=== PATIENT | female | born 1985 | race African-American/Black ===

== ENCOUNTER 2018-03-12 09:24 | Emergency (ER) | payer MEDICAID ==
--- NOTE | 2018-03-12 10:51 | ED ---
Perry Khan Stephanie, scribed for Raivn Harvey MD on 03/12/18 at 0945 . Psychiatric Complaint - HPI Summary HPI Summary: The pt is a 32 y/o F BIB police with c/o aggressive behavior that began at 09: 00 today. Symptoms include sleep disturbances. The pt presents from a nursing home secondary to disruptive behavior. The pt reports she was bothered by the noise at er current facility. She expresses her dissatisfaction with her residential placement. Her psychiatrist is Dr. Nancy Martin. [facility]. She denies any physical complaint. - History Of Current Complaint Time Seen by Provider: 03/12/18 09:38 Hx Obtained From: Patient, EMS Hx Last Menstrual Period: 05/14/15 ?: No Onset/Duration: Gradual Onset - chronic, Still Present Timing: Constant Character: Frustrated Aggravating Factor(s): Other - loud noises in nursing home Alleviating Factor(s): Nothing Associated Signs And Symptoms: Positive: Sleep Disturbance Related History: Positive For: Prior Psychiatric Issues Has Homicidal: Denies: Thoughts - Allergies/Home Medications Allergies/Adverse Reactions: Allergies Allergy/AdvReac Type Severity Reaction Status Date / Time No Known Allergies Allergy Verified 05/21/15 15:09 Home Medications: Home Medications Acetaminophen TAB* [Tylenol TAB*] 650 mg PO Q4H PRN 03/12/18 [History Confirmed 03/12/18] Amitriptyline TAB* [Elavil TAB*] 100 mg PO BEDTIME 03/12/18 [History Confirmed 03/12/18] Ammonium Lactate [Ammonium Lactate] 12 % TOPICAL DAILY 03/12/18 [History Confirmed 03/12/18] Bacitracin OINTMENT* 1 applic TOPICAL BID 03/12/18 [History Confirmed 03/12/18] Benztropine TAB* [Cogentin TAB*] 1 mg PO TID 03/12/18 [History Confirmed ] Bisacodyl SUPP* [Dulcolax Supp*] 10 mg PO DAILY PRN 03/12/18 [History Confirmed 03/12/18] Calcium Polycarbophil TAB* [Fibercon TAB*] 625 mg PO DAILY 03/12/18 [History Confirmed 03/12/18] Cetirizine* [ZyrTEC 10 MG TAB*] 10 mg PO BEDTIME 03/12/18 [History Confirmed ] Chlorhexidine MOUTHWASH 0.12%* [Peridex Mouth Wash 0.12%*] 10 ml SWISH SPIT DAILY 03/12/18 [History Confirmed 03/12/18] Desogestrel-Ethinyl Estradiol [Enskyce] 1 tab PO DAILY 03/12/18 [History Confirmed 03/12/18] Docusate CAP* [Colace Cap*] 100 mg PO BID 03/12/18 [History Confirmed 03/12/18] Fluticasone NASAL SPRAY 50MCG* [Flonase NASAL SPRAY 50MCG*] 2 spray BOTH NARES DAILY 03/12/18 [History Confirmed 03/12/18] LORazepam TAB(*) [Ativan 1 MG TAB (*)] 2 mg PO BID PRN 03/12/18 [History Confirmed 03/12/18] Lurasidone(*) [Latuda] 20 mg PO DAILY 03/12/18 [History Confirmed 03/12/18] Lurasidone(*) [Latuda] 80 mg PO DAILY 03/12/18 [History Confirmed 03/12/18] Multivitamins/Minerals TAB* [Theragran/minerals TAB*] 1 tab PO DAILY 03/12/18 [ History Confirmed 03/12/18] Nystatin TOP POWDER* 1 applic TOPICAL BID 03/12/18 [History Confirmed 03/12/18] Pantoprazole TAB (NF) [Protonix TAB (NF)] 20 mg PO BID AC 03/12/18 [History Confirmed 03/12/18] Propranolol TAB* [Inderal TAB*] 40 mg PO BID 03/12/18 [History Confirmed ] Senna TAB* [Senokot TAB*] 1 tab PO BEDTIME 03/12/18 [History Confirmed 03/12/18] Triazolam TAB* [Halcion TAB*] 0.25 mg PO BEDTIME PRN 03/12/18 [History Confirmed 03/12/18] diPHENhydraMINE PO* [Benadryl PO 50 MG CAP*] 50 mg PO BID 03/12/18 [History Confirmed 03/12/18] levETIRAcetam TAB* [Keppra TAB*] 1,500 mg PO BID 03/12/18 [History Confirmed ] PMH/Surg Hx/FS Hx/Imm Hx Sensory History: Reports: Hx Legally Blind Psychiatric History: Reports: Hx Post Traumatic Stress Disorder, Hx Bipolar Disorder, Other Psychiatric Issues/Disorders - schizo affective, OCD - Surgical History Surgery Procedure, Year, and Place: Unable to obtain Infectious Disease History: No Infectious Disease History: Denies: Traveled Outside the [place] in Last 30 Days - Family History Known Family History: Negative: Renal Disease - Social History Occupation: Disabled Lives: Assisted Alcohol Use: None Hx Substance Use: No Substance Use Type: Reports: None Hx Tobacco Use: No Smoking Status (MU): Never Smoked Tobacco Have You Smoked in the Last Year: No Review of Systems Negative: Fever Negative: Slurred Speech Positive: Other - frustrated at living situation All Other Systems Reviewed And Are Negative: Yes Physical Exam - Summary Physical Exam Summary: Appearance: Well appearing, no pain distress Skin: warm, dry, reflects adequate perfusion Head/face: normal Eyes: EOMI, KARLOS ENT: normal Neck: supple, non-tender Respiratory: CTA, breath sounds present Cardiovascular: RRR, pulses symmetrical Abdomen: non-tender, soft Bowel Sounds: present Musculoskeletal: normal, strength/ROM intact Neuro: Bilateral horizontal nystagmus, sensory motor intact, alert, cognitively impaired at baseline. Psych: Answers questions appropriately Triage Information Reviewed: Yes Vital Signs On Initial Exam: Initial Vitals Temp Pulse Resp BP Pulse Ox 98.9 F 91 15 106/75 95 03/12/18 09:31 03/12/18 09:31 03/12/18 09:31 03/12/18 09:31 03/12/18 09:31 Vital Signs Reviewed: Yes Diagnostics - Vital Signs Vital Signs Temp Pulse Resp BP Pulse Ox 03/12/18 09:31 98.9 F 91 15 106/75 95 - Laboratory Lab Statement: Any lab studies that have been ordered have been reviewed, and results considered in the medical decision making process. Course/Dx - Course Course Of Treatment: Patient with MR and behavioral issues recently transitioned to a new nursing home at the [facility]. Patient is unhappy with this and has had behavioral outburst. They're currently trying to get her housing changed. [facility] [place]. Mental health evaluation performed here and they cleared her for discharge through Dr. Greco. - Differential Dx/Clinical Impression Provider Diagnosis: Mood disorder, Mental retardation Discharge - Sign-Out/Discharge Documenting (check all that apply): Discharge/Admit/Transfer - Discharge - Discharge Plan Condition: Improved Disposition: HOME Referrals: Michelle CHINO SALON MANAGERRenata [Nurse Practitioner] - - Billing Disposition and Condition Condition: IMPROVED Disposition: Home The documentation as recorded by the Perry laurent Stephanie accurately reflects the service I personally performed and the decisions made by , Ravin Harvey MD.
[2018-03-12 11:48] VITALS: BP 00/0
== END 2018-03-12 11:43 | disposition home or self-care (01) ==
LOC: ED 09:24
DX: F39 Unspecified mood [affective] disorder (principal); F79 Unspecified intellectual disabilities; Z79.899 Other long term (current) drug therapy; F43.10 Post-traumatic stress disorder, unspecified; F25.9 Schizoaffective disorder, unspecified
CPT/HCPCS: 99283

== ENCOUNTER 2018-03-13 13:42 | Emergency (ER) | payer MEDICAID ==
[2018-03-13] MEDS ORDERED: LORazepam INJ* 2 MG/ML 1 ML VIAL IM ONE (13:48)
--- NOTE | 2018-03-13 13:57 | ED ---
Psychiatric Complaint - HPI Summary HPI Summary: 32-year-old female from a intermediate sent in for agitation/violent behavior. She was escorted by EMS and police as she was agitated in the facility. She has been quite agitated over the last 2 weeks since arriving at this new intermediate. She is well-known to me as I evaluated her yesterday for the same thing. Patient wants to be placed in a facility called [facility] on [address] in [place] but instead was moved here. Her behavioral therapy coordinator was with her yesterday but is not here today. Patient is agitated until asked if she wants to go to [facility] after which time she gets happy and more cooperative. Patient is also known to be blind and with a history of mental retardation/cognitive impairment. The police district switchboard operator states the facility does not want her back and was trying to tell her that she was suicidal. - History Of Current Complaint Time Seen by Provider: 03/13/18 13:48 Hx Obtained From: EMS, Other: - Police Hx From Patient Unobtainable Due To: Other - Mental retardation Hx Last Menstrual Period: 05/14/15 - Allergies/Home Medications Allergies/Adverse Reactions: Allergies Allergy/AdvReac Type Severity Reaction Status Date / Time No Known Allergies Allergy Verified 05/21/15 15:09 PMH/Surg Hx/FS Hx/Imm Hx Previously Healthy: No - blind, mental retardation, aggressive behaviors Sensory History: Reports: Hx Legally Blind Opthamlomology History: Reports: Hx Legally Blind Psychiatric History: Reports: Hx Post Traumatic Stress Disorder, Hx Bipolar Disorder, Other Psychiatric Issues/Disorders - schizo affective, OCD Denies: Hx of Violent Episodes Against Others - Surgical History Surgery Procedure, Year, and Place: Unable to obtain - Family History Known Family History: Negative: Renal Disease - Social History Alcohol Use: None Hx Substance Use: No Substance Use Type: Reports: None Hx Tobacco Use: No Smoking Status (MU): Never Smoked Tobacco Have You Smoked in the Last Year: No Review of Systems All Other Systems Reviewed And Are Negative: No - Comments Additional Review of Systems Comments: Unable to obtain from patient due to mental retardation, aggressiveness Physical Exam Triage Information Reviewed: Yes Vital Signs Reviewed: Yes Appearance: Positive: No Pain Distress Skin: Positive: Warm, Dry Head/Face: Positive: Normal Head/Face Inspection Eyes: Positive: Other: - Bilateral horizontal nystagmus with a wandering gaze. Patient able to see movement ENT: Positive: Hearing grossly normal, Other - Mucous membranes moist Neck: Positive: Supple, Nontender Respiratory/Lung Sounds: Positive: Clear to Auscultation Cardiovascular: Positive: RRR, Pulses are Symmetrical in both Upper and Lower Extremities Abdomen Description: Positive: Nontender, Soft, Other: - Obese Musculoskeletal: Positive: Normal, Strength/ROM Intact Neurological: Positive: Other - Moves all extremities spontaneously with normal strength. Normal speech. No focal deficit or weakness. Psychiatric: Positive: Other - Capable of simple answers only. Agitated. Perseverates on her placement issue. Re-Evaluation - Re-Evaluation Second Eval Change: Improved Course/Dx - Course Course Of Treatment: Patient again evaluated by mental health. Again they feel that this is not mental health in nature. Patient has had behavioral issues since being moved to a facility in which she has not comfortable. Her behavioral therapy coordinator who is here yesterday states that they are D working on emergency placement for her. This is not expected through the weekend. Patient has been cooperative and read-out directable here without any violent behaviors. She is very loud, but has not thrown anything or been difficult otherwise for the nursing. Placement will not be established to the ER. She will return to her intermediate and placement change will be obtained through her services. - Differential Dx/Clinical Impression Provider Diagnosis: Mental retardation, Adjustment disorder with emotional disturbance - Physician Notifications Discussed Care Of Patient With: mental health tattoo designer - mental health aware of patient and will assist with evaluation Discharge - Sign-Out/Discharge Documenting (check all that apply): Discharge/Admit/Transfer - Discharge Plan Condition: Improved Disposition: HOME Patient Education Materials: Mood Disorders (ED) Referrals: Rosa Caban [Primary Care Provider] - Additional Instructions: Return to the [facility]. retail performance specialist to become involved through the weekend. They are working on emergency placement for her. She is not felt to be mental health in nature after evaluations here. She is redirectable and nonviolent here. - Billing Disposition and Condition Condition: IMPROVED Disposition: Home
[2018-03-13] MEDS ORDERED: diPHENhydraMINE IV* 50 MG/ML 1 ml VIAL (BENADRYL) IM ONE (15:23)
[2018-03-13 17:22] VITALS: BP 143/92
== END 2018-03-13 17:21 | disposition home or self-care (01) ==
LOC: ED 13:42
DX: F43.25 Adjustment disorder with mixed disturbance of emotions and conduct (principal); F79 Unspecified intellectual disabilities
CPT/HCPCS: 96372; 99283; J1200; J2060